=== PATIENT | female | born 1990 | race Hispanic/Latino ===

== ENCOUNTER 2024-07-24 14:38 | Emergency (ER) | payer OTHER ==
[2024-07-24 15:31] LABS: Absolute Basophils 0.1 K/uL (0-0.5); Absolute Eosinophils 0.1 K/uL (0-0.5); Absolute Lymphocytes (CBC) 2.6 K/uL (0.7-4.9); Absolute Monocytes 0.6 K/uL (0.1-1.3); Absolute Neutrophil 3.9 K/uL (1.8-8.0); Basophils % 0.9 % (0-1.3); Eosinophils % 1.4 % (0-4.4); Hematocrit 39.2 % (36.0-45.0); Hemoglobin 13.7 g/dL (12.0-15.0); Lymphocytes % 36.3 % (15.3-44.8); MCH 31.4 pg (27.0-35.0); MCHC 34.9 g/dL (32.0-36.0); MCV 89.8 fL (80-100); MPV 7.2 fL (7.6-11.3); Monocytes % 7.7 % (3.3-12.3); Neutrophils % 53.7 % (41.7-73.7); Nucleated Red Blood Cells % 0.2 % (0-0); Platelets 367 thou/uL (152-406); RBC Red Blood Cell Count 4.37 M/uL (3.86-4.86); Red Cell Distribution Width 13.9 % (12.1-15.2)
[2024-07-24 15:33] LABS: Specific Gravity 1.027 (1.005-1.030)
[2024-07-24 15:36] LABS: Specific Gravity 1.027 (1.005-1.030); Urine Bacteria None Seen /HPF (<20); Urine Bilirubin NEGATIVE (Negative); Urine Blood 2+ (Negative); Urine Clarity Extremely Turbid (Clear); Urine Color Light-Yellow (Yellow); Urine Culture Reflex Order REFLEXED; Urine Glucose NEGATIVE (Negative); Urine Ketones NEGATIVE (Negative); Urine Microscopic Reflex YN ORDER UMIC; Urine Nitrite NEGATIVE (Negative); Urine Protein NEGATIVE (Negative); Urine RBC <5 /HPF (None Seen); Urine Urobilinogen Normal (Normal); Urine WBC Clump Rare /HPF (None Seen)
--- NOTE | 2024-07-24 16:03 | RAD REPORT ---
EXAMINATION: Transvaginal OB COMPARISON: None. HISTORY: ABD CRAMPING, TECHNIQUE: Real-time ultrasound was performed through the pelvis. A transvaginal scan was performed t o better visualize the intrauterine contents and adnexa. FINDINGS: There is a single living intrauterine . Cardiac activity measured 159 BPM. Small subchorionic bleed is present measuring 17 mm. Both ovaries are visualized and appear unremarkable. There is no free fluid in the cul-de-sac. Measurements and Calculations: [place] rump length 17 mm, consistent with a sonographic age of 8 weeks, 1 days. Estimated date of del corin is 03/04/2025 IMPRESSION: Single living intrauterine , with a composite sonographic age of 8 weeks, 1 days. Small subchorionic bleed.
[2024-07-24 16:15] LABS: Anion Gap 10.7 mEq/L (5.0-15.0); Potassium 3.7 mEq/L (3.5-5.1)
--- NOTE | 2024-07-24 16:52 | ER ---
Nurse's Notes [facility] Name: La Siddiqui Age: 33 yrs Sex: Female : 1990 Arrival Date: 07/24/2024 Time: 14:38 Bed 4 Private MD: Diagnosis: Threatened Presentation: 07/24 14:54 Chief complaint: Patient states: vaginal bleeding on that was mild and aa5 resolved. Pt reports mild vaginal bleeding began again today, also c/o lower back pain and reports positive test on 06/24/2024, scheduled for 1st OB appointment 07/26/2024. Coronavirus screen: At this time, the client does not indicate any symptoms associated with coronavirus-19. Ebola Screen: Patient denies travel to an Ebola-affected area in the 21 days before illness onset. Initial Sepsis Screen: Does the patient meet any 2 criteria? No. Patient's initial sepsis screen is negative. Does the patient have a suspected source of infection? No. Patient's initial sepsis screen is negative. Risk Assessment: Do you want to hurt yourself or someone else? Patient reports no desire to harm self or others. Onset of symptoms was July 24, 2024. 14:54 Acuity: MIROSLAVA 3 aa5 14:54 Method Of Arrival: Ambulatory aa5 SUPERVISOR COMPRESSED YEAST: 14:56 4, Full Term 2, Premature 0, 1, Living 2, LMP 06/01/2024, aa5 Verified, EDC 03/08/2025, Gestational age from LMP: 7 weeks 4 days Historical: - Allergies: 14:54 No Known Allergies; aa5 - PMHx: 14:54 None; aa5 - PSHx: 14:54 None; aa5 - Immunization history:: Adult Immunizations unknown. - Infectious Disease History:: Denies. - Social history:: Smoking status: Patient denies any tobacco usage or history of. Screenin:21 [facility] ED Fall Risk Assessment (Adult) History of falling in the last 3 months, me1 including since admission No falls in past 3 months (0 pts) Confusion or Disorientation No (0 pts) Intoxicated or Sedated No (0 pts) Impaired Gait No (0 pts) Mobility Assist Device Used No (0 pt) Altered Elimination No (0 pt) Score/Fall Risk Level 0 - 2 = Low Risk Maintained a safe environment, Provided non-skid footwear, Hourly rounding (assess needs \T\ fall precautionary measures) done. Abuse screen: Denies threats or abuse. Nutritional screening: No deficits noted. Tuberculosis screening: No symptoms or risk factors identified. Assessment: 15:21 General: Appears in no apparent distress. well groomed, well developed, well nourished, me1 Behavior is calm, cooperative, appropriate for age, Reports vaginal bleeding on that was mild and resolved. Pt reports mild vaginal bleeding began again today, also c/o lower back pain and reports positive test on 06/24/2024, scheduled for 1st OB appointment 07/26/2024. Pain: Complains of pain in left low back and right low back Pain does not radiate. Pain currently is 3 out of 10 on a pain scale. Quality of pain is described as dull, Pain began gradually, Is continuous. Neuro: Level of Consciousness is awake, alert, obeys commands, Oriented to person, place, time, situation, Appropriate for age. Cardiovascular: Patient's skin is warm and dry. Respiratory: Airway is patent Respiratory effort is even, unlabored, Respiratory pattern is regular, symmetrical. GI: No signs and/or symptoms were reported involving the gastrointestinal system. : Reports vaginal bleeding that is spotty, since earlier today. EENT: No signs and/or symptoms were reported regarding the EENT system. Derm: Skin is intact, is healthy with good turgor, Skin is pink, warm \T\ dry. Musculoskeletal: Reports pain in low back area and left low back. Vital Signs: 14:54 BP 136 / 88; Pulse 85; Resp 16 S; Temp 97.8(TE); Pulse Ox 100% on R/A; Weight 90.72 kg aa5 (R); Height 5 ft. 0 in. (R); 15:00 BP 120 / 77; Pulse 79; Resp 16; Pulse Ox 100% ; me1 16:00 BP 130 / 76; Pulse 75; Resp 16; Pulse Ox 99% ; me1 17:00 BP 124 / 79; Pulse 71; Resp 16; Temp 98.4; Pulse Ox 100% ; me1 14:54 Body Mass Index 39.06 (90.72 kg, 152.4 cm) aa5 ED Course: 14:45 Patient arrived in ED. cj3 14:47 Mital[facility] Baez [facility]-C [facility]. kb 14:47 Lee Higgins MD is Attending Physician. kb 14:54 Arm band placed on Patient placed in an exam room, on a stretcher. aa5 14:56 Triage completed. aa5 15:20 Rebekah Mirza, RN is Primary Nurse. me1 15:21 Patient has correct armband on for positive identification. Bed in low position. Call me1 light in reach. Side rails up X2. Provided Education on: POC. Verbalized understanding.. Client placed on continuous cardiac and pulse oximetry monitoring. NIBP monitoring applied. Pulse ox on. NIBP on. 15:21 Abo/rh Typing Sent. me1 15:21 Basic Metabolic Panel Sent. me1 15:21 CBC with Diff Sent. me1 15:21 Test, Urine Sent. me1 15:21 Quantitative Hcg Sent. me1 15:21 UA Rfx Leonid Cult if indicated Sent. me1 15:21 No provider procedures requiring assistance completed. Initial lab(s) drawn, by me, me1 sent to lab. Urine collected: clean catch specimen, cloudy. Inserted saline lock: 22 gauge in right antecubital area, using aseptic technique. 15:54 US Transvaginal Ob In Process Unspecified. EDMS 17:01 IV discontinued, intact, bleeding controlled, No redness/swelling at site. Pressure me1 dressing applied. Administered Medications: No medications were administered Medication: 15:21 VIS not applicable for this client. me1 Outcome: 16:52 Discharge ordered by . kb 17:01 Discharged to home via ambulance, with significant other, me1 17:01 Condition: stable 17:01 Discharge instructions given to patient, Instructed on discharge instructions, follow up and referral plans. Demonstrated understanding of instructions, follow-up care, 17:02 Patient left the ED. me1 Signatures: Dispatcher [employer] EDMS Mitali Baez FNP-C FNP-Ckb Calderon, Audri, RN RN aa5 Rebekah Mirza, RN RN me1 Stefanie Chong cj3 Corrections: (The following items were deleted from the chart) 15:21 14:54 Chief complaint: Patient states: vaginal bleeding on that was mild and me1 resolved. Pt reports mild vaginal bleeding began again today, also c/o lower back pain and reports positive test on 06/24/2024, scheduled for 1st OB appointment 07/26/2024. aa5
--- NOTE | 2024-07-24 16:52 | EDPHYS ---
Physician Documentation [facility] Name: La Siddiqui Age: 33 yrs Sex: Female : 1990 Arrival Date: 07/24/2024 Time: 14:38 Bed 4 Private MD: ED Physician Lee Higgins HPI: 07/24 14:57 This 33 yrs old Female presents to ER via Ambulatory with complaints of Back kb Pain - LOWER, Vaginal Bleeding, + Preg <12wks. 14:57 Patient is a 33-year-old female who presents for brown vaginal discharge and achiness kb across low back that happened 4 days ago, resolved and then started up again at 630 this morning. States symptoms resolved at 130 but she called her OB and the nurse said to come in for evaluation. Patient states she is 7 weeks . LMP 06/01/2024. A1.. [place]: 14:56 4, Full Term 2, Premature 0, 1, Living 2, LMP 06/01/2024, aa5 Verified, EDC 03/08/2025, Gestational age from LMP: 7 weeks 4 days Historical: - Allergies: 14:54 No Known Allergies; aa5 - PMHx: 14:54 None; aa5 - PSHx: 14:54 None; aa5 - Immunization history:: Adult Immunizations unknown. - Infectious Disease History:: Denies. - Social history:: Smoking status: Patient denies any tobacco usage or history of. ROS: 14:58 Constitutional: As per HPI kb Exam: 14:58 Constitutional: This is a well developed, well nourished patient who is awake, alert, kb and in no acute distress. Head/Face: Normocephalic, atraumatic. ENT: Moist Mucous membranes Cardiovascular: Regular rate Respiratory: Respirations even and unlabored. No increased work of breathing. Talking in full sentences Abdomen/GI: Soft, non-tender. No distention Back: No spinal tenderness. No costovertebral tenderness. Full range of motion. Skin: Warm, dry with normal turgor. Normal color. MS/ Extremity: Pulses equal, no cyanosis. Neurovascular intact. Full, normal range of motion. Neuro: Awake and alert, GCS 15, oriented to person, place, time, and situation. Vital Signs: 14:54 BP 136 / 88; Pulse 85; Resp 16 S; Temp 97.8(TE); Pulse Ox 100% on R/A; Weight 90.72 kg aa5 (R); Height 5 ft. 0 in. (R); 15:00 BP 120 / 77; Pulse 79; Resp 16; Pulse Ox 100% ; me1 16:00 BP 130 / 76; Pulse 75; Resp 16; Pulse Ox 99% ; me1 17:00 BP 124 / 79; Pulse 71; Resp 16; Temp 98.4; Pulse Ox 100% ; me1 14:54 Body Mass Index 39.06 (90.72 kg, 152.4 cm) aa5 MDM: 14:47 Medical Screening Exam initiated kb 16:50 Differential diagnosis: spontaneous , ectopic, subchorionic hemorrhage, kb threatened . Data reviewed: vital signs, nurses notes. Historians other than the Patient: Spouse/Significant Other: Spouse. Counseling: I had a detailed discussion with the patient and/or guardian regarding the historical points, exam findings, and any diagnostic results supporting the discharge/admit diagnosis, lab results, radiology results, the need for outpatient follow up, an OB/Gyne specialist, to return to the emergency department if symptoms worsen or persist or if there are any questions or concerns that arise at home. ED course: Patient has follow-up with OB on Thursday. 07/24 14:56 Order name: Abo/rh Typing; Complete Time: 16:47 kb 07/24 14:56 Order name: Basic Metabolic Panel; Complete Time: 16:47 kb 07/24 14:56 Order name: CBC with Diff; Complete Time: 16:01 kb 07/24 14:56 Order name: Test, Urine; Complete Time: 15:39 kb 07/24 14:56 Order name: Quantitative Hcg; Complete Time: 16:47 kb 07/24 14:56 Order name: UA Rfx Leonid Cult if indicated; Complete Time: 15:38 kb 07/24 15:41 Order name: Urine Culture EDMS 07/24 14:56 Order name: US Transvaginal Ob; Complete Time: 16:04 kb 07/24 14:56 Order name: IV Saline Lock; Complete Time: 15:21 kb 07/24 14:56 Order name: Labs collected and sent; Complete Time: 15:21 kb 07/24 14:56 Order name: NPO; Complete Time: 15:21 kb Administered Medications: No medications were administered Disposition: 18:40 Co-signature as Attending Physician, Lee Higgins MD I reviewed the patient's care rn provided by the Advanced Practice Provider and agree with the diagnosis and treatment plan. Disposition Summary: 07/24/24 16:52 Discharge Ordered Notes: Location: Home kb Condition: Stable kb Diagnosis - Threatened kb Followup: kb - With: Emergency Department - When: As needed - Reason: Worsening of condition Followup: kb - With: Private Physician - When: 2 - 3 days - Reason: Recheck today's complaints, Continuance of care, Re-evaluation by your physician Discharge Instructions: - Discharge Summary Sheet kb - Subchorionic Hematoma kb - Threatened Miscarriage, [id number] kb - Vaginal Bleeding During , First Trimester, [id number] kb Forms: - Medication Reconciliation Form kb - Antibiotic Education kb - Prescription Opioid Use kb - Patient Portal Instructions kb - Leadership Thank You Letter kb Signatures: Dispatcher [employer] EDMitali Sanabria, OPERATIONS CONSULTANT-C OPERATIONS CONSULTANT-Ckb Lee Higgins MD MD rn Calderon, Audri RN RN aa5 Corrections: (The following items were deleted from the chart) 14:57 14:57 Transvaginal Ob+US.RAD.BRZ ordered. CHAVEZ BYRNE
[2024-07-24 17:27] VITALS: BP 124/79; TEMP 98.4; O2SAT 100
== END 2024-07-24 17:02 | disposition home or self-care (01) ==
LOC: ER 14:38
DX: O20.0 Threatened abortion (principal); Z3A.01 Less than 8 weeks gestation of pregnancy
CPT/HCPCS: 36415; 76817; 80048; 81001; 81025; 84702; 85025; 86900; 86901; 87086; 87088; 99284